=== PATIENT | female | born 1960 | race Caucasian/White ===

== ENCOUNTER 2018-03-11 08:07 | Emergency (ER) | payer OTHER ==
--- OUTSIDE RECORDS SUMMARY | 2018-03-11 08:14 | XMS REPORT ---
:1960 External Reference #:[id number] Author Organization [facility] Address [address] [place] [address] Phone [phone] Care Team Providers Name Role Phone Ashlyn Melendez M.D. Primary Care Physician Unavailable Payers Type Date Identification Numbers Payment Provider Subscriber Commercial Policy Number: [id number] [employer] Aranda Group Number: [id number] 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 Cigarette Use Never Smoked Cigarettes Cigars Never Smoked Cigars Pipe Never Smoked A Pipe Smokeless Tobacco Never Used Smokeless Tobacco ETOH Use Currently occasionally consumes alcohol Smoking Patient has never smoked Allergies, Adverse Reactions, Alerts Date Description Reaction Status Severity Comments 03/15/2013 NKDA active Medications Medication Date Status Form Strength Qnty SIG Indications Ordering Provider Levothyroxine Active Unknown Sodium 000 Viibryd Active Tablets 10mg 1/2 tab Al, 000 daily Ashlyn Koch Escitalopram Hx Unknown Oxalate 000 - 015 Advil Hx Unknown 000 - 015 Aspirin Hx Unknown 000 - 013 Vital Signs Date Vital Result Comment 03/09/2018 Weight 132.00 lb Weight in kg's 59.875 Height 68 inches 5'8" Height in cm's 172.7 cm BMI (Body Mass Index) 20.1 kg/m2 03/17/2017 BP Systolic 119 mmHg BP Diastolic 73 mmHg Heart Rate 74 /min Respiratory Rate 16 /min Weight 142.00 lb Weight in kg's 64.411 Height 68 inches 5'8" Height in cm's 172.7 cm BMI (Body Mass Index) 21.6 kg/m2 02/26/2016 Respiratory Rate 17 /min Weight 142.00 lb Weight in kg's 64.411 Height 68 inches 5'8" Height in cm's 172.7 cm BMI (Body Mass Index) 21.6 kg/m2 06/27/2015 BP Systolic 113 mmHg BP Diastolic 66 mmHg Heart Rate 75 /min Respiratory Rate 16 /min Weight 142.00 lb Weight in kg's 64.411 Height 68 inches 5'8" Height in cm's 172.7 cm BMI (Body Mass Index) 21.6 kg/m2 08/23/2013 BP Systolic 115 mmHg BP Diastolic 75 mmHg Heart Rate 66 /min Respiratory Rate 16 /min Weight 142.00 lb Weight in kg's 64.411 Height 68 inches 5'8" Height in cm's 172.7 cm BMI (Body Mass Index) 21.6 kg/m2 04/06/2013 Respiratory Rate 16 /min Weight 142.00 lb Weight in kg's 64.411 Height 68 inches 5'8" Height in cm's 172.7 cm BMI (Body Mass Index) 21.6 kg/m2 Results Description No Information Procedures Date CPT Code Description Status 03/17/2017 07145 Tympanometry Completed 03/17/2017 06207 Comprehensive Audiogram Completed 06/11/2015 43539 Tympanometry Completed 06/11/2015 55997 Comprehensive Audiogram Completed 03/20/2013 36828 Tympanometry Completed 03/20/2013 90934 Comprehensive Audiogram Completed Encounters Type Date Location Provider CPT E/M Dx Office Visit 03/09/2018 [place] 10/03/07 Georgi Castaneda, 09489 H90.A11 10:00a H71.91 Office Visit 03/17/2017 1:30p [place],After 10/03/07 Georgi Castaneda 62538 H90.A11 H71.91 Office Visit 02/26/2016 9:00a [place],After 10/03/07 [place] [address] H90.11 H69.81 Office Visit 06/27/2015 9:30a [place],After 10/03/07 [place] [address] H90.11 H71.11 Office Visit 08/23/2013 11:15a [place],After 10/03/07 [place] [address] 385.32 389.03 Office Visit 04/06/2013 10:00a [place],After 10/03/07 [place] [address] 385.32 389.03 Office Visit 03/15/2013 11:00a [place],After 10/03/07 [place] [address] 385.32 Plan of Care No Information Available
[2018-03-11 08:22] VITALS: BP 115/52
--- NOTE | 2018-03-11 08:48 | UC ---
Respiratory Complaint HPI - HPI Summary HPI Summary: states she has been feeling congested with 'head cold' for two weeks and started having cough specially at night, sometimes with phlegm/mucus for past week. She had been taking ASA for aches and continues to wake up at night with cough. Denies chills, fever or nausea/vomiting. - History of Current Complaint Chief Complaint: UCRespiratory Stated Complaint: CHEST CONGESTION COUGH Time Seen by Provider: 03/11/18 08:28 Hx Obtained From: Patient ?: No Onset/Duration: Gradual Onset, Lasting Weeks Timing: Intermittent Episodes Severity Initially: Mild Severity Currently: Moderate Pain Intensity: 3 Character: Cough: Nonproductive Aggravating Factors: Allergens Alleviating Factors: Nothing Associated Signs And Symptoms: Positive: Nasal Congestion Related History: Seasonal Allergies - Risk Factors Pulmonary Embolism Risk Factors: Negative Cardiac Risk Factors: Negative Pseudomonas Risk Factors: Negative Tuberculosis Risk Factors: Negative - Allergies/Home Medications Allergies/Adverse Reactions: Allergies Allergy/AdvReac Type Severity Reaction Status Date / Time RED PILL COATING AdvReac Intermediate BODY RASH Uncoded 03/11/18 08:22 PMH/Surg Hx/FS Hx/Imm Hx Previously Healthy: Yes Endocrine History: Hypothyroidism Psychological History: Anxiety - Surgical History Surgical History: Yes Surgery Procedure, Year, and Place: /SMALL BEIGN LUMP RT BREAST REMOVED - Family History Known Family History: Positive: Other - asthma in mom - Social History Alcohol Use: Occasionally Substance Use Type: None Smoking Status (MU): Never Smoked Tobacco Review of Systems ENT: Sinus Congestion Respiratory: Cough All Other Systems Reviewed And Are Negative: Yes Physical Exam Triage Information Reviewed: Yes Appearance: Well-Appearing, No Pain Distress, Well-Nourished Vital Signs: Initial Vital Signs Temp 98 F 03/11/18 08:18 Pulse 80 03/11/18 08:18 Resp 17 03/11/18 08:18 BP 115/52 03/11/18 08:18 Pulse Ox 98 03/11/18 08:18 Vital Signs Reviewed: Yes Eyes: Positive: Conjunctiva Clear ENT: Positive: Pharynx normal, Uvula midline - right TM with scaring s/p cholesteatoma excision, left TMI, no PNST Neck: Positive: Supple, Nontender, No Lymphadenopathy Respiratory: Positive: Lungs clear, Normal breath sounds, No respiratory distress, No accessory muscle use Cardiovascular: Positive: RRR, No Murmur, Pulses Normal, Brisk Capillary Refill UC Diagnostic Evaluation - Laboratory O2 Sat by Pulse Oximetry: 98 Respiratory Course/Dx - Course Course Of Treatment: Hx of allergies and FHx of asthma, RAD to be treated with flovent BID for 10 days, f/u with PCP in 2 weeks - Differential Dx/Diagnosis Provider Diagnoses: Reactive Airway Disease Discharge - Sign-Out/Discharge Documenting (check all that apply): Discharge/Admit/Transfer - Discharge Plan Condition: Good Disposition: HOME Prescriptions: Fluticasone DISKUS 100 MCG(NF) [Flovent Diskus 100 MCG(NF)] 1 puff INH BID 10 Days #1 diskus Patient Education Materials: Reactive Airways Disease (ED), Fluticasone (By breathing) Referrals: Ashlyn Melendez MD [Primary Care Provider] - - Billing Disposition and Condition Condition: GOOD Disposition: Home
== END 2018-03-11 08:50 | disposition home or self-care (01) ==
LOC: UCEAST 08:07
DX: J45.909 Unspecified asthma, uncomplicated (principal); R09.81 Nasal congestion; E03.9 Hypothyroidism, unspecified; F41.9 Anxiety disorder, unspecified; Z82.5 Family history of asthma and other chronic lower respiratory diseases
CPT/HCPCS: 99212; G0463